=== PATIENT | male | born 1950 ===

== ENCOUNTER 2017-09-07 11:21 | Inpatient (IN) | payer MEDICARE ==
[2017-09-07 12:00] LABS: #Lymphocytes 1.2 thou/uL (1.20-3.40); #Monocytes 0.9 thou/uL (0.11-0.59); #Neutrophils 6.4 thou/uL (1.40-6.50); %Basophils 0.4 % (0.0-1.0); %Eosinophils 0.5 % (0.0-10.0); %Lymphocytes 14.3 % (21.0-51.0); %Neutrophils 74.9 % (42.0-75.0); Mean Corpuscular HGB CONC 33.4 g/dL (32.0-36.0); Mean Corpuscular Hemoglobin 32.6 pg (27.0-31.0); Mean Corpuscular Volume 97.7 fl (80.0-94.0); Platelet Count 187 thou/uL (130-400); RBC Distribution Width 12.3 % (11.5-14.5); White Blood Cell (WBC) Count 8.6 thou/uL (4.8-10.8)
[2017-09-07 12:25] LABS: ALT (SGPT) 18 U/L (8-55); AST (SGOT) 37 U/L (5-34); Albumin 4.4 g/dL (3.4-4.8); Alkaline Phosphatase 72 U/L (40-150); Anion Gap 16 mmol/L (10-20); BUN (Urea Nitrogen) 15 mg/dL (8.4-25.7); Bilirubin, Total 1.3 mg/dL (0.2-1.2); CK (CPK) 122 U/L (30-200); Calc. Creatinine Clearance 0 mL/min (70-130); Calcium 9.7 mg/dL (7.8-10.44); Carbon Dioxide 22 mmol/L (23-31); Chloride 103 mmol/L (98-107); Estimated GFR-MDRD 78; Glucose 116 mg/dL (80-115); Potassium 4.6 mmol/L (3.5-5.1); Protein, Total 7.4 g/dL (5.8-8.1); Sodium 136 mmol/L (136-145)
[2017-09-07 12:31] LABS: CKMB 12.3 ng/mL (0-6.6); Troponin I 2.428 ng/mL (< 0.028)
[2017-09-07] MEDS ORDERED: Iopamidol 370 76% 100 ML VIAL ONE (12:52)
[2017-09-07] MEDS ORDERED: Iopamidol 370 76% 50 ML VIAL FS ONE (12:52)
[2017-09-07] MEDS ORDERED: Lidocaine 1% (PF) 30 ML VIAL ONE (13:05)
[2017-09-07] MEDS ORDERED: Fentanyl 100 MCG/2 ML VIAL ONE (13:29)
[2017-09-07] MEDS ORDERED: Midazolam HCl 2 mg/2 ml Vial ONE (13:29)
--- NOTE | 2017-09-07 13:33 | RAD ---
SINGLE VIEW CHEST: Date: 09/07/17 COMPARISON: None. HISTORY: Chest pain. FINDINGS: Single view of the chest shows a normal sized cardiomediastinal silhouette. There is no evidence of c onsolidation, mass, or pleural effusion. The bones are unremarkable. IMPRESSION: No evidence of acute cardiopulmonary disease. POS: [facility]
[2017-09-07] MEDS ORDERED: DOPamine 400 MG/D5W 250 ML 0 ML ONE (13:34)
[2017-09-07] MEDS ORDERED: Adenosine 6 MG/2 ML VIAL ONE (13:42)
[2017-09-07] MEDS ORDERED: Verapamil 5 MG/2 ML VIAL ONE (13:42)
[2017-09-07] MEDS ORDERED: Heparin 10,000 UNITS/1 ML VIAL ONE (13:50)
[2017-09-07] MEDS ORDERED: Norepinephrine 4 MG/4 ML VIAL ONE ×2 (13:52→13:53)
[2017-09-07] MEDS ORDERED: Phenylephrine HCL 10 MG/ML VIAL ONE (14:00)
[2017-09-07] MEDS ORDERED: Nitroglycerin 100MG/250ML BOT 250 ML ONE (14:01)
[2017-09-07] MEDS ORDERED: Nitroglycerin 4.9 GM Bottle ONE (14:01)
[2017-09-07] MEDS ORDERED: Zolpidem Tartrate 5 MG TAB PO PRN (15:06)
[2017-09-07] MEDS ORDERED: Mag-Al 1200 mg/1200 mg/30 ML UDCUP PO PRN (15:06)
[2017-09-07] MEDS ORDERED: Milk Of Magnesia 30 ML UDCUP PO PRN (15:06)
[2017-09-07] MEDS ORDERED: Acetaminophen/Codeine 30-300mg Tablet PO PRN (15:06)
[2017-09-07] MEDS ORDERED: traMADol HCl 50 MG TAB PO PRN (15:06)
[2017-09-07] MEDS ORDERED: Sodium Chloride 0.9% 1,000 ML IV SCH (15:15)
--- NOTE | 2017-09-07 16:11 | EKG ---
Test Reason : POST PTCA/STENTS X4 Blood Pressure : / mmHG Vent. Rate : 095 BPM Atrial Rate : 095 BPM P-R Int : 186 ms QRS Dur : 096 ms QT Int : 350 ms P-R-T Axes : 079 070 065 degrees QTc Int : 439 ms Normal sinus rhythm Septal infarct , age undetermined cannot be excluded Abnormal ECG Confirmed by LENORE BO ([id number]) on 09/07/2017 4:10:49 PM Referred By: MARLA Confirmed By:LENORE BO
[2017-09-07 16:46] VITALS: BMI 17.0
[2017-09-07 17:49] LABS: Critical Call CKMBM RESULT DECREASING
[2017-09-07 17:57] LABS: Troponin I 3.321 ng/mL (< 0.028)
[2017-09-07] MEDS ORDERED: Diazepam 5 MG TAB PO PRN (20:19)
[2017-09-07] MEDS: Atorvastatin Calcium 40 MG TAB PO SCH (20:22)
[2017-09-07] MEDS ORDERED: Diazepam 5 MG TAB PO SCH (20:30)
[2017-09-07] MEDS ORDERED: Thiamine HCl 200 MG/2 ML VIAL IM SCH (20:30)
--- NOTE | 2017-09-07 20:36 | CCL ---
DATE OF SERVICE: 09/07/2017 This is an addendum to catheterization report. Mr. Membreno was transferred to the emergency room from the office due to a high suspicion of unst able angina. While in the office, I did consent him for coronary angiography. He was felt to be unstable and was transferred to the ER for stabilization. He was adamant about not proceeding with bypass surgery. H is daughter also agreed. He has had relatives in the past who have not done well with poor quality o f life after bypass surgery. He was seen and evaluated in the emergency room. His troponin was 2. He continued to have pain. 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 I went out to talk to the , who was not present. Given contin ued pain, I decided to proceed with coronary angiography. He had severe stenosis on a subtotal circumflex artery in addition to severe stenosis of the proximal portion of the LAD and what appeared to be a dissection in the [id number] region of the LAD. I d id state bypass surgery was recommended. He was adamant against bypass surgery. I then proceeded wi percutaneous intervention. I decided to try and stent the circumflex artery first. Prior to the angio, his heart rate was in th e 120s, blood pressure was in the 90s. I tried to address the circumflex artery first given the stai donta in the distal region. I could not wire the circumflex artery after multiple attempts. Given co ntinued hypotension, requiring Levophed and tachycardia, it was decided to stent the LAD. This was s uccessful. After stent in the LAD, his blood pressure increased and his heart rate decreased. I the n proceeded with stent placement of the circumflex artery in the mid region. There appeared to be a lesion noted near ostial circumflex artery. Two stents were placed successfully. I then placed a st ent in the distal LAD with 2.5 x 12 mm stent due to concern for previous dissection or thrombus. POS: [facility]
[2017-09-07 22:31] LABS: CKMB 12.2 ng/mL (0-6.6); Troponin I 4.203 ng/mL (< 0.028)
[2017-09-08 05:43] LABS: #Lymphocytes 1.3 thou/uL (1.20-3.40); #Monocytes 0.9 thou/uL (0.11-0.59); #Neutrophils 5.2 thou/uL (1.40-6.50); %Basophils 0.4 % (0.0-1.0); %Eosinophils 0.2 % (0.0-10.0); %Lymphocytes 17.4 % (21.0-51.0); %Monocytes 11.7 % (0.0-10.0); %Neutrophils 70.3 % (42.0-75.0); Hemoglobin 13.3 g/dL (14.0-18.0); Mean Corpuscular HGB CONC 33.4 g/dL (32.0-36.0); Mean Corpuscular Hemoglobin 32.3 pg (27.0-31.0); Mean Corpuscular Volume 96.9 fl (80.0-94.0); Mean Platelet Volume 7.9 fL (7.4-10.4); Platelet Count 161 thou/uL (130-400); RBC Distribution Width 12.2 % (11.5-14.5); Red Blood Cell (RBC) Count 4.11 mill/uL (4.70-6.10); White Blood Cell (WBC) Count 7.3 thou/uL (4.8-10.8)
[2017-09-08 05:53] LABS: ALT (SGPT) 15 U/L (8-55); AST (SGOT) 33 U/L (5-34); Albumin 3.6 g/dL (3.4-4.8); Alkaline Phosphatase 55 U/L (40-150); Anion Gap 12 mmol/L (10-20); BUN (Urea Nitrogen) 14 mg/dL (8.4-25.7); Bilirubin, Total 1.3 mg/dL (0.2-1.2); Calc. Creatinine Clearance 73 mL/min (70-130); Calcium 8.6 mg/dL (7.8-10.44); Carbon Dioxide 21 mmol/L (23-31); Chloride 106 mmol/L (98-107); Estimated GFR-MDRD Greater than 90; Globulin 2.7 g/dL (2.4-3.5); Glucose 126 mg/dL (80-115); Potassium 3.9 mmol/L (3.5-5.1); Protein, Total 6.3 g/dL (5.8-8.1); Sodium 135 mmol/L (136-145)
[2017-09-08] MEDS: Diazepam 5 MG TAB PO PRN ×2 (08:47→22:47)
[2017-09-08] MEDS: Clopidogrel Bisulfate 75 MG TAB PO SCH (08:47)
[2017-09-08] MEDS: Folic Acid 1 MG TAB PO SCH (08:47)
[2017-09-08] MEDS: Multivitamin W/ Minerals 1 TAB PO SCH (08:47)
[2017-09-08] MEDS: Magnesium Oxide 400 MG TAB PO SCH (08:47)
--- NOTE | 2017-09-08 15:40 | EKG ---
Test Reason : Blood Pressure : / mmHG Vent. Rate : 095 BPM Atrial Rate : 095 BPM P-R Int : 142 ms QRS Dur : 094 ms QT Int : 352 ms P-R-T Axes : 072 057 082 degrees QTc Int : 442 ms Normal sinus rhythm Right atrial enlargement Nonspecific T wave abnormality Abnormal ECG Confirmed by LENORE BO ([id number]) on 09/08/2017 3:40:37 PM Referred By: MARLA Confirmed By:LENORE BO
--- NOTE | 2017-09-08 19:02 | PRG ---
DATE OF SERVICE: 09/08/2017 SUBJECTIVE: Mr. Membreno is doing well. No current complaints. He does appear a bit shaky. I d id discuss alcohol withdrawal with Mr. Membreno. He states he drinks not more than 2 alcoholic be verages per day and does not drink on a daily basis, although the history seems to be inconsistent. PHYSICAL EXAMINATION: CURRENT VITAL SIGNS: Blood pressure 105/67, pulse 97, temperature afebrile. LUNGS: Clear to auscultation. HEART: Regular rate and rhythm. ABDOMEN: Soft, nontender, nondistended. EXTREMITIES: No edema. IMPRESSION: 1. Non-Q myocardial infarction. 2. Coronary artery disease. 3. Mild cardiomyopathy. RECOMMENDATIONS: Mr. Membreno is doing well. Continue current therapy as prescribed. His hemogl obin appears stable this morning. His creatinine is also stable. His peak troponin was 4.2 with CK- MB of 12. It will be okay from my standpoint to transfer to the floor.
[2017-09-08] MEDS: Atorvastatin Calcium 40 MG TAB PO SCH (20:13)
[2017-09-09] MEDS: Multivitamin W/ Minerals 1 TAB PO SCH (08:24)
[2017-09-09] MEDS: Clopidogrel Bisulfate 75 MG TAB PO SCH (08:24)
[2017-09-09] MEDS: Folic Acid 1 MG TAB PO SCH (08:24)
[2017-09-09] MEDS: Magnesium Oxide 400 MG TAB PO SCH (08:25)
[2017-09-09 14:29] VITALS: BP 125/76
[2017-09-09 17:12] VITALS: TEMP 98.1
--- NOTE | 2017-09-09 19:08 | DIS ---
DATE OF ADMISSION: 09/07/2017 DATE OF DISCHARGE: 09/09/2017 DISCHARGE DIAGNOSIS: 1. Unstable angina. 2. Ischemic cardiomyopathy. 3. Tobacco abuse. PROCEDURE: 1. Urgent coronary angiography. 2. Successful stent placement to the LAD and circumflex artery. COMPLICATIONS: None. HOSPITAL COURSE: Mr. Membreno was seen as an outpatient and as a new patient. He was felt to hav e symptoms consistent with unstable angina. It was recommended that he proceed to the emergency room for stabilization. He then underwent coronary angiography and was found to have multivessel disease . Bypass surgery was strongly recommended. Mr. Membreno and his family were adamant against bypa ss surgery despite the recommendation. I then proceed with stent implantation to the LAD and circumf kareen artery. This went well. He was then transferred to the ICU in guarded condition. He did well d uring his hospitalization. His echo on 09/07/2017 did suggest LVEF 25%-30%. LVEF was discussed on 0 09/09/2017. At this point, his is unsure on whether to proceed with a LifeVest or even defibrill ator. They understand the risks and benefits. They will decide and let us know on Wednesday. I did st ate that he is to follow up with us within 1 week. DISCHARGE MEDICATIONS: Include, 1. Coreg 3.125 one p.o. b.i.d. 2. Hold SEAN inhibitor therapy and ARB due to hypotension. 3. Atorvastatin 40 at bedtime. 4. Aspirin 81 q.a.m. CONDITION ON DISCHARGE: Stable. FOLLOWUP: Follow up with Dr. Collier or Jade Hogue in 1 week.
--- NOTE | 2017-09-23 15:12 | EKG ---
Test Reason : Blood Pressure : / mmHG Vent. Rate : 099 BPM Atrial Rate : 099 BPM P-R Int : 168 ms QRS Dur : 090 ms QT Int : 320 ms P-R-T Axes : 081 047 031 degrees QTc Int : 410 ms Normal sinus rhythm Possible Left atrial enlargement Septal infarct , age undetermined Abnormal ECG Confirmed by CHAI CARDONA ([id number]), keyboard instrument repairer SABA VITAL ([id number]) on 09/23/2017 3:12:19 PM Referred By: BRENDAN Confirmed By:CHAI CARDONA
== END 2017-09-09 17:25 | disposition home or self-care (01) | DRG 246 ==
LOC: ERS 11:21 → CCU 13:21 → CCL 14:08 → CCU 15:00 → 2NO 09-08 22:03 → CCU 09-08 22:45
PROVIDERS: ADMIT Internal Medicine Cardiovascular Disease; ATTEND Internal Medicine Cardiovascular Disease
PROC: 027137Z Dilation of Coronary Artery, Two Arteries with Four or More Drug-eluting Intraluminal Devices, Percutaneous Approach (ICD-10-PCS; principal; 2017-09-07)
PROC: 02703ZZ Dilation of Coronary Artery, One Artery, Percutaneous Approach (ICD-10-PCS; 2017-09-07)
PROC: 4A023N7 Measurement of Cardiac Sampling and Pressure, Left Heart, Percutaneous Approach (ICD-10-PCS; 2017-09-07)
PROC: B2111ZZ Fluoroscopy of Multiple Coronary Arteries using Low Osmolar Contrast (ICD-10-PCS; 2017-09-07)
DX: I21.4 Non-ST elevation (NSTEMI) myocardial infarction (principal); F17.210 Nicotine dependence, cigarettes, uncomplicated; I25.110 Atherosclerotic heart disease of native coronary artery with unstable angina pectoris; I25.5 Ischemic cardiomyopathy
CPT/HCPCS: 36415; 71045; 76942; 80053; 82550; 82553; 84484; 85025; 85347; 92928; 92929; 93005; 93010; 93306; 93458; 93798; 94760; A4216; C1725; C1769; C1874; C1887; C9600; C9601; J0153; J1265; J1644; J2001; J2250; J2370; J3010; J3411; J3475; J7050

== ENCOUNTER 2017-12-21 09:23 | Outpatient (CLI) | payer MEDICARE ==
--- NOTE | 2017-12-21 10:42 | ULT ---
THYROID ULTRASOUND: HISTORY: Thyroid nodule. FINDINGS: Real-time imaging of the right and left lobes of the thyroid were performed. The right lobe measures 1.83 x 1.8 x 4 cm and the left lobe 1.3 x 3.5 x 3.8 cm. Both the right and left lobes are very hete rogeneous. It is difficult to define definite discrete nodules. Somewhat lobulated contour to both the right and left lobes. IMPRESSION: Diffuse heterogeneity to both right and left lobes of the thyroid gland. It is difficult to definite discrete nodules. POS: [facility]
== END 2017-12-21 09:24 | disposition home or self-care (01) ==
LOC: SCSULT 09:23
PROVIDERS: ATTEND Psychiatry & Neurology Psychiatry
DX: E04.1 Nontoxic single thyroid nodule (principal); R93.8 Abnormal findings on diagnostic imaging of other specified body structures
CPT/HCPCS: 76536

== ENCOUNTER 2018-01-18 08:55 | Outpatient (CLI) | payer MEDICARE ==
[2018-01-18] MEDS ORDERED: ISOVUE-370 76%-LOCM 1 ML ONE (10:37)
== END 2018-01-18 08:56 | disposition home or self-care (01) ==
LOC: BICCT 08:55
PROVIDERS: ATTEND Physician Assistant
DX: I77.9 Disorder of arteries and arterioles, unspecified (principal); E04.2 Nontoxic multinodular goiter; I65.23 Occlusion and stenosis of bilateral carotid arteries; J39.2 Other diseases of pharynx
CPT/HCPCS: 70498; 82565